=== PATIENT | female | born 2000 | race Caucasian/White ===

== ENCOUNTER 2022-01-27 02:35 | Emergency (ER) | payer MEDICAID ==
[2022-01-27] MEDS ORDERED: Amoxicillin 875 MG Tab PO ONE (02:42)
[2022-01-27 02:56] VITALS: BP 142/82; PULSE 84
== END 2022-01-27 02:50 | disposition home or self-care (01) ==
LOC: VM.ED 02:35
DX: H66.002 Acute suppurative otitis media without spontaneous rupture of ear drum, left ear (principal)
CPT/HCPCS: 99282; A9270